=== PATIENT | female | born 1975 ===

== ENCOUNTER 2018-09-03 15:24 | Emergency (ER) | payer SELFPAY ==
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
[2018-09-03 16:13] LABS: HEMATOCRIT 41.1 % (35.0-47.0); HEMOGLOBIN 14.3 gm/dl (11.6-16.0); MEAN CELL VOLUME 91.3 fl (81-97); MEAN CORPUSCULAR HEMOGLOBIN 31.8 pg (27-33); MEAN CORPUSCULAR HGB CONC 34.8 g/dl (32-36); MEAN PLATELET VOLUME 9.7 fl (7.4-10.4); PLATELET COUNT 344 K/uL (130-400); RED CELL DISTRIBUTION WIDTH 13.4 % (11.5-14.5); WHITE BLOOD COUNT W/O DIFF 9.3 K/uL (4.2-12.2)
[2018-09-03 16:27] LABS: BLOOD UREA NITROGEN 6 mg/dL (6-20); PARTIAL THROMBOPLASTIN TIME 21.5 SECONDS (24.5-39.1); PROTHROMBIN TIME (PATIENT) 10.1 SECONDS (9.5-12.1)
[2018-09-03 16:28] LABS: CREATININE 0.7 mg/dL (0.5-0.9); EST GLOMERULAR FILTRATION RATE > 60 mL/min; TOTAL PROTEIN 7.5 g/dL (6.6-8.7)
[2018-09-03 16:30] LABS: GLUCOSE,RANDOM 94 mg/dL (74-109)
[2018-09-03 16:33] LABS: ALB/GLOB RATIO 1.7 (1.1-1.8); ALBUMIN 4.7 g/dL (4.0-5.0); ALKALINE PHOSPHATASE 49 U/L (35-104); ALT/SGPT 17 U/L (<33); AST/SGOT 17 U/L (10.0-35.0)
[2018-09-03 16:43] LABS: THYROID STIMULATING HORMONE 0.39 uIU/mL (0.270-4.20)
[2018-09-03] MEDS ORDERED: ASPIRIN 325 MG TABLET PO ONE (17:38)
[2018-09-03] MEDS ORDERED: DOXYCYCLINE HYCLATE 100 MG CAPSULE PO ONE (17:47)
--- NOTE | 2018-09-04 20:13 | CT SCAN REPORT ---
EXAM: CT SCAN HEAD WO CONTRAST HISTORY: LEFT ARM NUMBNESS. TECHNIQUE: Helical CT scan of the head obtained without intravenous contrast. HAND DOMINANCE: Right. COMPARISON: None. FINDINGS: No evidence of hemorrhage, extraaxial fluid collection, or major vessel infarction. Velazquez-white matter differentiation is maintained. Ventricles are normal. Basal cisterns are patent. No mass effect or midline shift. Calvarium is intact. Paranasal sinuses show mucosal thickening of the ethmoid and sphenoid sinuses and mucocele in the left maxillary sinus. There are air- fluid levels in the maxillary sinuses. IMPRESSION: 1. NO ACUTE INTRACRANIAL ABNORMALITIES. 2. SINUSITIS, CHRONIC WITH SUPERIMPOSED ACUTE COMPONENT IN THE MAXILLARY SINUSES. JOB NUMBER: [id number] [facility]
== END 2018-09-03 18:15 | disposition short-term general hospital (02) ==
LOC: ER 15:24
DX: R20.2 Paresthesia of skin (principal); R42 Dizziness and giddiness; H61.23 Impacted cerumen, bilateral; R11.0 Nausea; F17.210 Nicotine dependence, cigarettes, uncomplicated
CPT/HCPCS: 70450; 80053; 84443; 84484; 85027; 85610; 85730; 93005; 93010; 99285

== ENCOUNTER 2019-11-16 15:07 | Emergency (ER) | payer MEDICAID ==
[2019-11-16] MEDS ORDERED: MORPHINE SULFATE 5 MG/ML VIAL IM ONE (15:38)
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
== END 2019-11-16 17:22 | disposition short-term general hospital (02) ==
LOC: ER 15:07
DX: T23.59 Corrosion of first degree of multiple sites of wrist and hand (principal); T52.8X1A Toxic effect of other organic solvents, accidental (unintentional), initial encounter; F17.210 Nicotine dependence, cigarettes, uncomplicated
CPT/HCPCS: 96372; 99285